=== PATIENT | female | born 1955 | race African-American/Black ===

== ENCOUNTER 2017-09-19 23:14 | Emergency (ER) | payer MEDICAID ==
[~2017-09-19] VITALS: Ht 167.6 cm; Wt 70.0 kg
[~2017-09-19 23:14] MED LIST: ASPI-1159 PO; ATOR40TA70 PO; HYDR50CA5 PO; LEVO500T2 PO; METF500T4 PO; OLAN10TA19 PO; PROT40 PO; TAMS0.4C31 PO
[2017-09-20] MEDS ORDERED: PREDNISONE 20MG TABLET PO STA (03:15)
[2017-09-20] MEDS ORDERED: ALBUTEROL (0.083%) 2.5MG/3ML NEB HHN STA (03:15)
[2017-09-20] MEDS ORDERED: IPRATROPIUM BROMIDE (0.02%) 0.5MG/2.5ML NEB HHN STA (03:15)
[2017-09-20] MEDS ORDERED: ACETAMINOPHEN 325MG TABLET PO ONE (03:45)
[2017-09-20 05:27] VITALS: BP 114/67
== END 2017-09-20 05:45 | disposition home or self-care (01) ==
LOC: ER 23:14
DX: R05 Cough (principal); J45.909 Unspecified asthma, uncomplicated; I10 Essential (primary) hypertension; F17.200 Nicotine dependence, unspecified, uncomplicated; Z86.19 Personal history of other infectious and parasitic diseases; Z87.890 Personal history of sex reassignment; Z79.82 Long term (current) use of aspirin
CPT/HCPCS: 71045; 94644; 99285; J7512; J7611

== ENCOUNTER 2017-09-29 02:41 | Emergency (ER) | payer MEDICAID ==
[~2017-09-29] VITALS: Ht 172.7 cm; Wt 72.0 kg
[2017-09-29] MEDS ORDERED: LIDOCAINE HCL 1% 20ML VIAL (Pyxis) INJ MC ONE (05:00)
[2017-09-29] MEDS ORDERED: KETOROLAC 30MG/ML VIAL IM ONE (05:00)
[2017-09-29] MEDS ORDERED: TETANUS, DIPHTHERIA, PERTUSSIS VAC/PF 0.5ML (>7YR OLD) IM ONE (05:00)
[2017-09-29] MEDS ORDERED: BACITRACIN ZINC OINT UDPKT TOP ONE (05:00)
[2017-09-29] MEDS ORDERED: ONDANSETRON 4MG ODT PO ONE (05:00)
[2017-09-29] MEDS ORDERED: SODIUM CHLORIDE 0.9% 1,000 ML IV ONE (06:46)
[2017-09-29 07:06] LABS: BASOPHILS % 0.9 % (0.0-2.0); EOSINOPHILS % 0.8 % (0.0-5.0); HEMATOCRIT. 34.7 % (42.0-52.0); HEMOGLOBIN. 11.4 g/dL (14.0-18.0); LYMPHOCYTES % 13.9 % (20.0-50.0); MEAN CORPUSCULAR HEMOGLOBIN 26.6 pg (28.0-32.0); MEAN CORPUSCULAR VOLUME 81.2 fL (80.0-94.0); MEAN PLATELET VOLUME 7.8 fl (7.4-10.4); MONOCYTES % 10.5 % (2.0-8.0); NEUTROPHILS % 73.9 % (40.0-76.0); PLATELET 266 x1000/uL (130-400); RED BLOOD CELL COUNT 4.27 mill/uL (4.7-6.1); RED CELL DISTRIBUTION WIDTH 15.4 % (11.6-14.6)
[2017-09-29 07:06] LABS: CLARITY URINE CLEAR (CLEAR); COLOR URINE YELLOW (YELLOW); KETONES URINE TRACE (NEGATIVE); LEUKOCYTE ESTERASE URINE NEGATIVE (NEGATIVE); NITRITE URINE NEGATIVE (NEGATIVE); OCCULT BLOOD URINE NEGATIVE (NEGATIVE); PH URINE 5.5 (4.5-8.0); PROTEIN URINE NEGATIVE (NEGATIVE); SPECIFIC GRAVITY URINE 1.011 (1.005-1.030)
[2017-09-29 07:12] LABS: CHLORIDE 98 mEq/L (98-107)
[2017-09-29] MEDS ORDERED: IPRATROPIUM/ALBUTEROL 0.5-3(2.5)MG/3ML NEB HHN ONE (07:15)
[2017-09-29 07:20] LABS: ETHANOL BLOOD < 10 mg/dL
[2017-09-29 07:24] LABS: *AMPHETAMINES SCREEN URINE PRESUMTIVE POSITIVE (NEGATIVE); *BARBITURATES SCREEN URINE NEGATIVE (NEGATIVE); *BENZODIAZEPINES SCREEN URINE NEGATIVE (NEGATIVE); *COCAINE SCREEN URINE PRESUMTIVE POSITIVE (NEGATIVE); CANNABINOID URINE SCREEN PRESUMTIVE POSITIVE (NEGATIVE); METHADONE URINE SCREEN NEGATIVE (NEGATIVE); OPIATES URINE SCREEN NEGATIVE (NEGATIVE); PHENCYCLIDINE URINE SCREEN NEGATIVE (NEGATIVE)
[2017-09-29 07:25] LABS: CARBON DIOXIDE 25 mEq/L (21-32)
[2017-09-29 10:00] VITALS: BP 115/71
== END 2017-09-29 12:53 | disposition home or self-care (01) ==
LOC: ER 02:50
DX: L03.012 Cellulitis of left finger (principal); J44.1 Chronic obstructive pulmonary disease with (acute) exacerbation; I10 Essential (primary) hypertension; F17.210 Nicotine dependence, cigarettes, uncomplicated; F31.9 Bipolar disorder, unspecified; E11.9 Type 2 diabetes mellitus without complications; Z79.82 Long term (current) use of aspirin
CPT/HCPCS: 10080; 36415; 71045; 80053; 80305; 81003; 82962; 85025; 87070; 87430; 87804; 90471; 90715; 93005; 94640; 96360; 96372; 99285; G0482; J1885; J3490; J7620; Q0162